=== PATIENT | female | born 2000 | race Caucasian/White ===

== ENCOUNTER 2019-03-22 13:34 | Emergency (ER) | payer OTHER ==
[2019-03-22] MEDS: LIDOCAINE 4% CR TOP (15:22)
[2019-03-22] MEDS: LIDOCAINE 1% (MDV) 20 ML INJ SC (15:22)
[2019-03-22] MEDS: BACITRACIN 0.5%/ZINC 28.35 GM OINT TOP (15:22)
[2019-03-22] MEDS: DIPHTH/TET/ACEL PERTUSS (ADULT) 0.5 ML VIAL IM* (15:23)
== END 2019-03-22 17:10 | disposition home or self-care (01) ==
LOC: FTE 13:34
DX: S91.311A Laceration without foreign body, right foot, initial encounter (principal); J45.909 Unspecified asthma, uncomplicated; W25.XXXA Contact with sharp glass, initial encounter; Y92.9 Unspecified place or not applicable; Z23 Encounter for immunization
CPT/HCPCS: 12001; 73630; 81025; 90471; 90715; 99283-25